=== PATIENT | female | born 1975 | race Caucasian/White ===

== ENCOUNTER 2022-02-05 10:46 | Emergency (ER) | payer OTHER ==
[2022-02-05 11:06] VITALS: BP 121/79; PULSE 74; RESP 22; TEMP 97.7; BMI 32.8
== END 2022-02-05 13:30 | disposition home or self-care (01) ==
LOC: SUPCPDRO 10:46 → JER 10:46
DX: R55 Syncope and collapse (principal); R42 Dizziness and giddiness; T42.4X5A Adverse effect of benzodiazepines, initial encounter
CPT/HCPCS: 82962; 93005; 93010; 99284-25

== ENCOUNTER 2023-11-15 21:06 | Emergency (ER) | payer OTHER ==
[2023-11-15 21:10] VITALS: BP 140/88; PULSE 79; RESP 20; TEMP 98.1; BMI 32.9
[2023-11-15] MEDS ORDERED: predniSONE 20 MG TABLET (UD) ONE (21:36)
[2023-11-15] MEDS ORDERED: FAMOTIDINE 20 MG TABLET ONE (21:36)
[2023-11-15] MEDS: predniSONE 20 MG TABLET (UD) PO ONE (21:37)
[2023-11-15] MEDS: FAMOTIDINE 20 MG TABLET PO ONE (21:37)
== END 2023-11-16 | disposition home or self-care (01) ==
LOC: JER 21:06
DX: R10.13 Epigastric pain (principal); L29.9 Pruritus, unspecified; R06.02 Shortness of breath; R05.9 Cough, unspecified; T78.40XA Allergy, unspecified, initial encounter
CPT/HCPCS: 99283-25